=== PATIENT | male | born 1965 | race Caucasian/White ===

== ENCOUNTER 2017-08-11 12:58 | Emergency (ER) | payer OTHER ==
[~2017-08-11] VITALS: Ht 177.8 cm; Wt 103.6 kg
[~2017-08-11 12:58] MED LIST: MOTRIN IB200 MG
[2017-08-11] MEDS ORDERED: CLINDAMYCIN HC300 MG PO (14:47)
[2017-08-11] MEDS ORDERED: ULTRAM50 MG PO (14:47)
[2017-08-11 15:00] VITALS: BP 151/92
== END 2017-08-11 15:11 | disposition home or self-care (01) ==
LOC: EME 12:58
DX: K02.9 Dental caries, unspecified (principal); Z88.0 Allergy status to penicillin; Z88.6 Allergy status to analgesic agent; F17.200 Nicotine dependence, unspecified, uncomplicated
CPT/HCPCS: 99281; 99283